=== PATIENT | male | born 1985 | race Caucasian/White ===

== ENCOUNTER 2017-07-09 12:32 | Outpatient (CLI) ==
[2015-04-16 12:12] VITALS: BMI 30.7
== END 2017-07-09 12:33 | disposition home or self-care (01) ==
LOC: LAB 12:32
PROVIDERS: ATTEND Emergency Medicine
DX: R68.89 Other general symptoms and signs (principal)
CPT/HCPCS: 87502

== ENCOUNTER 2018-09-28 08:35 | Emergency (ER) | payer OTHER ==
[2018-09-28 08:39] VITALS: BP 134/84; TEMP 98.2; BMI 32.3
--- NOTE | 2018-09-28 09:28 | ED.PDOC ---
General ED Provider: Dr. YAMIL SANCHEZ Chief Complaint: Chest Pain Stated Complaint: GI BLoating and chest tightness. Onset 1 week State has difficulty with pain when swallowing food more than liquids.Occas experiences water brash. Has not taken any OTC therapy. Denies exertional chest or abdominal discomfort. Last oral intake yesterday PM when eating a sandwich. Experienced difficulty with swallowing. Chest discomfort not reproducible. Time Seen by Physician: 09:10 Mode of Arrival: Walk-In Information Source: Patient Exam Limitations: No limitations Primary Care Provider: ANDER THAKKAR Nursing and Triage Documentation Reviewed and Agree: Yes Does patient meet sepsis criteria?: No System Inflammatory Response Syndrome: Not Applicable Sepsis Protocol: For patient's 13 years and over: Temp is 96.8 and below OR 101 and greater Pulse >90 BPM Resp >20/minute Acutely Altered Mental Status Are patient's symptoms suggestive of a new infection, such as: -Pneumonia -Skin, Soft Tissue -Endocarditis -UTI -Bone, Joint Infection -Implantable Device -Acute Abdominal Infection -Wound Infection -Meningitis -Blood Stream Catheter Infection -Unknown Review of Systems - Review Of Systems Constitutional: Reports: No symptoms Eyes: Reports: No symptoms Ears, Nose, Mouth, Throat: Reports: No symptoms Respiratory: Reports: No symptoms Cardiac: Reports: No symptoms GI: Reports: No symptoms, Difficulty swallowing, Poor fluid intake : Reports: No symptoms Musculoskeletal: Reports: No symptoms Skin: Reports: No symptoms Neurological: Reports: No symptoms Endocrine: Reports: No symptoms Hematologic/Lymphatic: Reports: No symptoms All Other Systems: Reviewed and Negative Past Medical History - Past Medical History Previously Healthy: Yes Endocrine: Reports: None Cardiovascular: Reports: None Respiratory: Reports: None Hematological: Reports: None Gastrointestinal: Reports: None Genitourinary: Reports: None, Other Neuro/Psych: Reports: None Musculoskeletal: Reports: None Cancer: Reports: None - Surgical History General Surgical History: Reports: None - Family History Family History: Reports: None - Social History Smoking Status: Former smoker, Dips snuff Hx Substance Use: No Alcohol Screening: None Physical Exam - Physical Exam Appearance: Well-appearing, No pain distress, Well-nourished, Obese Ill-appearing: None Pain Distress: None Eyes: TOMÁS, EOMI, Conjunctiva clear ENT: Ears normal, Nose normal, Oropharynx normal Neck: Supple Respiratory: Airway patent, Breath sounds clear, Breath sounds equal, Respirations nonlabored Cardiovascular: RRR, Pulses normal, No rub, No murmur GI/: Soft, Nontender, No masses, Bowel sounds normal, No Organomegaly Musculoskeletal: Normal strength, ROM intact, No edema, No calf tenderness Skin: Warm, Dry, Normal color Neurological: Sensation intact, Motor intact, Reflexes intact, Cranial nerves intact, Alert, Oriented Psychiatric: Affect appropriate, Mood appropriate Interpretation - EKG Interpretation Time of EKG #1: 08:51 Rate: Normal Rhythm: Sinus Ectopy: None [place]: NL ST Segment: Normal Interpretation: NSR Critical Care Note - Critical Care Note Total Time (mins): 60 Course - Course Hematology/Chemistry: 09/28/18 09:55 09/28/18 09:55 Orders, Labs, Meds: Lab Review 09/28/18 09/28/18 09/28/18 09:55 09:55 09:55 WBC 6.10 RBC 5.34 Hgb 15.7 Hct 44.8 MCV 83.9 MCH 29.4 MCHC 35.0 RDW Coeff of Coco 12.4 Plt Count 234 Immature Gran % (Auto) 0.2 Neut % (Auto) 47.2 Lymph % (Auto) 39.5 [place] % (Auto) 10.0 Eos % (Auto) 2.8 Baso % (Auto) 0.3 Immature Gran # (Auto) 0.0 Neut # (Auto) 2.9 Lymph # (Auto) 2.4 [place] # (Auto) 0.6 Eos # (Auto) 0.2 Baso # (Auto) 0.0 Sodium 140.8 Potassium 4.27 Chloride 105.4 Carbon Dioxide 25.8 Anion Gap 13.87 BUN 15.3 Creatinine 0.81 Estimated GFR (MDRD) 111.00 BUN/Creatinine Ratio 18.88 Glucose 99.3 Calcium 9.23 Total Bilirubin 0.69 AST 21.2 ALT 19.9 Alkaline Phosphatase 59.4 Troponin I < 0.012 Total Protein 7.70 Albumin 5.05 H Globulin 2.65 Albumin/Globulin Ratio 1.90 Amylase 62.4 Lipase 44.4 Urine Color Yellow Urine Clarity Clear Urine pH 5.5 Ur Specific [place] 1.025 Urine Protein Negative Urine Glucose (UA) Negative Urine Ketones Negative Urine Blood 2+ Urine Nitrite Negative Urine Bilirubin Negative Urine Urobilinogen 0.2 Ur Leukocyte Esterase Negative Urine Microscopic RBC 5-10 Urine Microscopic WBC 2-5 Ur Squamous Epith Cells Not present Urine Bacteria Trace Urine Mucus 2+ Orders Category Date Time Status EKG-(ED ONLY) Stat CARDIO 09/28/18 09:28 Completed AMYLASE Stat LAB 09/28/18 09:55 Completed CBC W/ AUTO DIFF Stat LAB 09/28/18 09:55 Completed CMP [COMPREHENSIVE METABOLIC PANEL] Stat LAB 09/28/18 09:55 Completed HEPATITIS PANEL, ACUTE Stat LAB 09/28/18 09:55 Received LIPASE Stat LAB 09/28/18 09:55 Completed TROPONIN I Stat LAB 09/28/18 09:55 Completed UA [URINALYSIS C & S IF INDICATED] Stat LAB 09/28/18 09:55 Completed Mag-Al Plus//Lidocaine [Gi Cocktail] MEDS 09/28/18 10:47 Discontinued 30 ml PO ONCE STA ABDOMEN, SERIES FLAT & UPRIGHT Stat RADS 09/28/18 09:28 Completed CHEST, 2 VIEWS PA & LAT Stat RADS 09/28/18 09:[address] ABD/PEL WO RENAL STONE PROT Stat RADS 09/28/18 10:41 Completed Medications Discontinued Medications Generic Name Dose Route Start Last Admin Trade Name Freq PRN Reason Stop Dose Admin Al Hydroxide/Mg Hydroxide 30 ml 09/28/18 10:47 09/28/18 10:52 Gi Cocktail PO 09/28/18 10:48 30 ml ONCE STA Administration Vital Signs: Temp Pulse Resp BP Pulse Ox 09/28/18 08:36 98.2 F 61 20 134/84 98 Departure - Departure Time of Disposition: 11:20 Disposition: HOME SELF-CARE Discharge Problem: GERD (gastroesophageal reflux disease), Esophageal spasm Instructions: Esophageal Spasm (ED), Gastroesophageal Reflux Disease (ED) Condition: Good Pt referred to PMD for follow-up: Yes (Establish care with PCP and Seek GI evaluation ) IPMP verified?: No Additional Instructions: Take meds as directed Chew food slowly and small portions Stay well hydrated and drink fluids with meals See PCP and GI specialist plus specialist for additional testing to evaluated UA findings of hematuria Have UA rechecked Allergies/Adverse Reactions: Allergies acetaminophen [From [facility]] Allergy (Severe, Verified 09/28/18 08:39) nausea hydrocodone bitartrate [From [facility]] Allergy (Severe, Verified 09/28/18 08:39) nausea Latex, Natural Rubber Adverse Reaction (Verified 09/28/18 08:39) Home Medications: Ambulatory Orders Pantoprazole Sodium [Protonix] 40 mg PO DAILY #30 tablet. 09/28/18 Disposition Discussed With: Patient (Father present during discharge exam), Family
[2018-09-28] MEDS ORDERED: GI COCKTAIL PO STA (10:47)
--- NOTE | 2018-09-28 11:02 | DI ---
EXAM: Two-view chest HISTORY: Postprandial fullness COMPARISON: None. FINDINGS: The cardiomediastinal silhouette is normal. The lungs are clear bilaterally. No osseous abnormalities are identified. IMPRESSION: No evidence of active pulmonary disease
--- NOTE | 2018-09-28 11:07 | CT ---
EXAM: CT scan abdomen pelvis without contrast HISTORY: Upper abdominal discomfort COMPARISON: None. FINDINGS: Contiguous axial images obtained through the abdomen pelvis without contrast utilizing 3-m m collimation. Sagittal and coronal reconstructions were imaged and reviewed.. The visualized lung bases are clear. The gallbladder is fluid filled without cholelithiasis. The liver, pancreas, splee n and adrenal glands have normal unenhanced CT appearance. The abdominal aorta is normal in course a nd caliber. The kidneys morphologically normal.. Clips are seen adjacent to the cecum. There is no free fluid or inflammatory changes. Prostate gland normal in size. The bladder is small volumed li miting evaluation. There is a small fat-containing umbilical hernia.. Bone windows reveals no evide nce of lytic or blastic lesions. IMPRESSION: No acute intra-abdominal findings
--- NOTE | 2018-09-28 11:10 | DI ---
EXAM: Abdominal series two views HISTORY: Bloating COMPARISON: None. FINDINGS: There is no evidence of obstruction, free air or abnormal calcification.. Air and stool is noted throughout the colon . No osseous abnormalities identified. IMPRESSION: No evidence of obstruction or free air
== END 2018-09-28 11:48 | disposition home or self-care (01) ==
LOC: ED 08:35
DX: K21.9 Gastro-esophageal reflux disease without esophagitis (principal); K22.4 Dyskinesia of esophagus; R31.29 Other microscopic hematuria; Z72.0 Tobacco use
CPT/HCPCS: 36415; 74176; 80053; 80074; 81001; 82150; 83690; 84484; 85025; 93005; 93010; 99284

== ENCOUNTER 2018-10-14 11:42 | Outpatient (CLI) | END 2018-10-14 11:43 | disposition home or self-care (01) | LOC: RHC-LAB 11:42 | PROVIDERS: ATTEND Nurse Practitioner Family | DX: J02.9 Acute pharyngitis, unspecified (principal) | CPT/HCPCS: 87651 ==